=== PATIENT | female | born 1960 ===

== ENCOUNTER 2017-05-14 10:25 | Emergency (ER) | payer OTHER ==
[2017-05-14 10:44] VITALS: RESP 18; TEMP 97.9; O2SAT 100
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
[2017-05-14 13:34] VITALS: BP 121/71; PULSE 76
== END 2017-05-14 13:34 | disposition home or self-care (01) ==
LOC: C.ER 10:25
DX: S00.83XA Contusion of other part of head, initial encounter (principal); V43.52XA Car driver injured in collision with other type car in traffic accident, initial encounter; W22.11XA Striking against or struck by driver side automobile airbag, initial encounter; Y92.410 Unspecified street and highway as the place of occurrence of the external cause